=== PATIENT | male | born 1970 | race African-American/Black ===

== ENCOUNTER 2023-12-18 07:13 | Emergency (ER) | payer OTHER, SELFPAY ==
--- NOTE | ~2023-12-18 | CT_ITS ---
EXAMINATION: CT abdomen pelvis w con DATE: 12/18/2023 08:23 INDICATION: Abdominal pain. Diarrhea. TECHNIQUE: Computed tomography (CT) of the abdomen and pelvis was performed with 100 mL Omnipaque 350 intravenous contrast. Automated exposure control and iterative reconstruction technique were employe d. The dose-length product was 181.02 mGy-cm. COMPARISON: None. FINDINGS: The visualized portions of the lung bases are clear without pneumonia or pleural effusion. The heart size is normal. No pericardial effusion. The liver, gallbladder, and spleen are normal. The re are calcifications in the pancreas with mild dilatation of the pancreatic duct, consistent with ch ronic pancreatitis. The right adrenal gland is normal. There is an 11 mm mass in left adrenal gland m easuring soft tissue attenuation. The kidneys are normal. There are no dilated loops of bowel. The ap pendix is normal. There are no pathologically enlarged lymph nodes. There is no free intraperitoneal fluid. There is mild lumbar spondylosis. IMPRESSION: 1. Chronic pancreatitis. 2. 11 mm left adrenal mass, likely an adenoma in the absence of known malignancy. Reviewed, dictated and finalized at location A. IMPRESSION: 1. Chronic pancreatitis. 2. 11 mm left adrenal mass, likely an adenoma in the absence of known malignanc y.
--- NOTE | ~2023-12-18 | US_ITS ---
US abdomen limited INDICATION: Abdomen pain. Transaminitis. PROCEDURE: Realtime right upper abdominal ultrasound. COMPARISON: CT dated 12/18/2023 FINDINGS: There are multiple pancreatic calcifications, consistent with chronic pancreatitis. There i s prominence of the pancreatic duct. Liver echotexture is normal without focal mass or intrahepatic biliary dilatation. There is normal directional flow in the portal vein. The gallbladder is normal without stones, gallbladder wall thickening or pericholecystic fluid. Comm on bile duct measures 2 mm. No sonographic Koehler's sign. Right renal echotexture is unremarkable. IMPRESSION: 1: Chronic pancreatitis. Reviewed, dictated and finalized at location B. IMPRESSION: 1: Chronic pancreatitis.
[2023-12-18 07:19] VITALS: BP 147/96; PULSE 58; RESP 19; TEMP 36.8; O2SAT 100
[2023-12-18 08:02] LABS: Basophils Percent Auto 0.3 % (0.2-1.2); Eosinophils Percent Auto 0.1 % (0-4.4); Hematocrit 34.2 % (42.0-52.0); Immature Granulocyte Absolute 0.01 K/mm3 (0.00-0.031); Immature Granulocyte Percent A 0.1 % (0-0.5); Lymphocytes Absolute Auto 1.34 K/mm3 (0.9-3.2); Lymphocytes Percent Auto 18.5 % (18.3-44.2); Mean Corpuscular HGB Conc 35.1 g/dl (32-36); Mean Corpuscular Hemoglobin 34.8 pg (26-34); Mean Corpuscular Volume 99.1 fl (80-100); Mean Platelet Volume 9.7 fl (7.4-10.4); Monocytes Absolute Auto 0.5 K/mm3 (0.1-0.6); Neutrophils Absolute Auto 5.4 K/mm3 (1.3-6.7); Platelet Count Result 356 k/mm3 (150-375); Red Blood Count 3.45 M/mm3 (4.6-6.20); Red Cell Distribution Width 11.9 % (11.5-14.5); White Blood Count 7.3 K/mm3 (4.5-10.0)
--- NOTE | 2023-12-18 08:03 | ED.ABDPAIN ---
HPI - Abdominal Pain General Chief Complaint: Abdominal Pain Stated Complaint: abdominal pain Time Seen by Provider: 12/18/23 07:37 History of Present Illness HPI narrative: 52-year-old male presenting to the emergency department for evaluation for abdominal pain and dizziness that started last night. Patient states when he had mid abdominal pain last night he did have some associated lightheaded dizziness and diaphoresis. Patient denies any associated chest pain or shortness of breath. Patient denies any significant past medical history and denies any surgical history. Patient states he does drink alcohol daily but has not been drinking in the last few days due to not feeling well. Patient states that if he does not drink alcohol he does not go through withdrawals. Patient denies any prior history of pancreatitis. Related Data Home Medications Medication Instructions Recorded Confirmed No Home Medications 12/18/23 12/18/23 Allergies Allergy/AdvReac Type Severity Reaction Status Date / Time No Known Allergies Allergy Verified 12/18/23 07:45 Review of Systems Review of Systems: All systems reviewed & are unremarkable except as noted in HPI and below Exam Narrative: APPEARANCE: Well appearing, no pain, no distress, well-nourished. HEAD: normocephalic, atraumatic. EYES: PERRLA/EOMI, conjunctivae clear. NOSE: Normal no drainage EARS:TMS clear with good light reflex. THROAT: Pharynx clear, no exudate. NECK: Supple. No adenopathy, no masses. RESPIRATORY: Airway patent, respirations nonlabored. Clear to auscultation bilaterally, no rales, rhonchi, wheezing. CARDIOVASCULAR: Regular rate and rhythm without murmurs rubs or gallops. ABDOMINAL: Diffuse abdominal pain MUSCULOSKELETAL: Moves all extremities. Strength/ROM intact, No edema, No calf tenderness. NEURO: Alert. Cranial nerves II through XII intact. Grossly intact SKIN: Warm, dry. Normal Color Course Course Emergency Course: Patient felt improved with treatment and was discharged to home with follow-up. Vital Signs Vital signs: Vital Signs Temperature 98.2 F 12/18/23 07:19 Pulse Rate 58 L 12/18/23 07:19 Respiratory Rate 19 12/18/23 07:19 Blood Pressure 147/96 H 12/18/23 07:19 Pulse Oximetry 100 12/18/23 07:19 Temperature 98.2 F 12/18/23 07:19 Pulse Rate 69 12/18/23 11:10 Respiratory Rate 14 12/18/23 11:10 Blood Pressure 144/89 H 12/18/23 11:10 Pulse Oximetry 99 12/18/23 11:10 MDM - Abdominal Pain MDM Narrative Medical decision making narrative: 52-year-old male presents to the emergency department for evaluation for abdominal pain. Patient's findings were suggestive of chronic pancreatitis. Patient is afebrile with no leukocytosis and hemoglobin of 12 point all. Patient's lipase is not elevated. Patient did have mild elevation of T bili AST and ALT but alk-phos was normal. CT scan showed chronic pancreatitis. Due to the elevated liver enzymes ultrasound was ordered and only showed chronic pancreatitis. Patient was updated results of his workup. Patient does feel improved with treat patient was advised to have close follow-up with primary care physician for additional outpatient testing and to follow a low-fat diet and to avoid alcohol. Differential Diagnosis Differential diagnosis: Likely abdominal pain, acute appendicitis, calculus of kidney, constipation, diverticulitis, pancreatitis and small bowel obstruction Lab Data Attestation: I reviewed the patient's lab results. 12/18/23 07:50 12/18/23 07:50 Labs: Lab Results 12/18/23 12/18/23 Range/Units 07:50 08:40 WBC 7.3 (4.5-10.0) K/mm3 RBC 3.45 L (4.6-6.20) M/mm3 Hgb 12.0 L (14.0-18.0) g/dL Hct 34.2 L (42.0-52.0) % MCV 99.1 (80-100) fl MCH 34.8 H (26-34) pg MCHC 35.1 (32-36) g/dl RDW 11.9 (11.5-14.5) % Plt Count 356 (150-375) k/mm3 MPV 9.7 (7.4-10.4) fl Immature Gran % (Auto)
[2023-12-18 08:05] LABS: Alanine Aminotransferase 169 U/L (6-50); Albumin Level 4.4 g/dL (3.5-5.1); Alkaline Phosphatase 95 U/L (38-126); Anion Gap 10 mmol/L (4-12); Aspartate Amino Transferase 628 U/L (17-59); Bilirubin,Total 2.4 mg/dL (0.2-1.3); Blood Urea Nitrogen 16 mg/dL (9-20); Calcium 9.3 mg/dL (8.4-10.2); Carbon Dioxide 25 mmol/L (22-30); Chloride 100 mmol/L (98-107); Estimated CRCL calculation 80 ml/min; Estimated Glomerular Filt Rate > 60; Glucose 164 mg/dL (65-110); Lipase 102 U/L (23-300); Potassium 4.3 mmol/L (3.4-5.0); Sodium 135 mmol/L (137-145)
[2023-12-18] MEDS: SODIUM CHLORIDE 0.9% IV 1,000 ML 999 ML IV CONT (08:58)
[2023-12-18] MEDS: HYDROmorphone HCL INJ (*CRX) 1 MG/ML SYR IV PUSH (08:58)
[2023-12-18 09:02] LABS: Add Urine Microscopic? YES; Appearance Urine Clear (Clear); Bilirubin Urine Negative (Negative); Blood Urine Negative (Negative); Glucose Urine UA Negative (Negative); Ketones Urine Negative (Negative); Leukocyte Esterase Ur Negative LEU/UL (Negative); Nitrate Urine Negative (Negative); Protein Urine Negative (Negative); Specific Grav Ur > 1.045 (1.001-1.035); Urobilinogen Urine 0.2 mg/dL (<2.0); pH Urine 5.5 (5.0-9.0)
[2023-12-18 09:03] LABS: Color Urine Light Orange (Yellow)
[2023-12-18 11:10] VITALS: BP 144/89; PULSE 69; RESP 14; O2SAT 99
== END 2023-12-18 11:12 | disposition home or self-care (01) ==
PROVIDERS: Emergency Provider Emergency Medicine; PCP Physician Assistant
DX: K86.1 Other chronic pancreatitis (principal); E27.8 Other specified disorders of adrenal gland
CPT/HCPCS: 36415; 74177; 76705; 80053; 81001; 83690; 85025; 96361; 96374; 99284; J1170; J7030; Q9967